=== PATIENT | male | born 1985 | race Caucasian/White ===

== ENCOUNTER 2016-06-29 13:30 | Emergency (ER) | payer OTHER ==
[2016-06-29 14:08] VITALS: BP 141/78; PULSE 88; RESP 12; TEMP 99.1; O2SAT 96
--- NOTE | 2016-06-29 14:43 | UCPHY ---
H & P Time Seen by Provider: 06/29/16 14:42 Patient Type: New HPI/ROS: This is a duplicate chart Smoking Status: Never smoked Constitutional: Initial Vital Signs Temperature (C) 37.3 C 06/29/16 14:04 Heart Rate 88 06/29/16 14:04 Respiratory Rate 12 06/29/16 14:04 Blood Pressure 141/78 H 06/29/16 14:04 O2 Sat (%) 96 06/29/16 14:04 O2 Delivery Mode Room Air Allergies/Adverse Reactions: No Known Allergies Allergy (Verified 06/29/16 14:03) Home Medications: Medication Instructions Recorded La[facility]tal 05/31/15 Seroquel 100 mg (RX) 05/31/15 MDM/Departure - Depart - PQRS PQRS Measurement: MYPQRS
--- NOTE | 2016-06-29 14:44 | UCPHY ---
H & P Time Seen by Provider: 06/29/16 14:42 Patient Type: Established HPI/ROS: Chief complaint. Thumb injury HPI. 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 He was scoring and snapping a piece of glass which then cut him across the dorsum of his right thumb. Injury occurred just prior to arrival. Denies focal weakness paresthesias. No sense of retained foreign body. Current on tetanus immunization ROS Constitutional. no fever/chills, no weakness Eyes. no problems with vision ENT. no sore throat, no nasal drainage Cardiovascular. no chest pain Respiratory. no shortness of breath, no cough Abdominal. no abdominal pain, no nausea/vomiting, no diarrhea . no problems urinating MS. no calf pain/swelling, no neck/back pain, no joint pain Skin. Thumb laceration Lymph. no swollen glands Neuro. no headache, no dizziness, no difficulty walking or with speech Past Medical/Surgical History: Bipolar illness Social History: Single, nonsmoker, no alcohol Smoking Status: Never smoked Physical Exam: General Appearance: Alert well-developed male mild distress vital signs stable Eyes: Pupils equal and round no pallor or injection. ENT, Mouth: Mucous membranes are moist. Respiratory: There are no retractions, lungs are clear to auscultation. Cardiovascular: Regular rate and rhythm. Gastrointestinal: Abdomen is soft and nontender, no masses, bowel sounds normal. Neurological: Awake and alert, sensory and motor exams grossly normal. Skin: 1.5 cm laceration across the dorsum of his right thumb. I can see a small cut in the extensor tendon through the laceration. Patient however has good range of motion and good extension against resistance. Sensation is normal Musculoskeletal: Neck is supple nontender. Extremities symmetrical, full range of motion. Psychiatric: Patient is oriented X 3, there is no agitation. Constitutional: Initial Vital Signs Temperature (C) 37.3 C 06/29/16 14:04 Heart Rate 88 06/29/16 14:04 Respiratory Rate 12 06/29/16 14:04 Blood Pressure 141/78 H 06/29/16 14:04 O2 Sat (%) 96 06/29/16 14:04 O2 Delivery Mode Room Air Allergies/Adverse Reactions: No Known Allergies Allergy (Verified 06/29/16 14:03) Home Medications: Medication Instructions Recorded [facility]tal 05/31/15 Seroquel 100 mg (RX) 05/31/15 MDM/Departure - MDM Procedures: Procedure: Laceration repair. Verbal consent was obtained from the patient. The 1.5 cm laceration on the dorsum right thumb was anesthetized in the usual fashion. The wound was irrigated, draped and explored to its base with a gloved finger. A partial tendon injury was identified. The wound was repaired with [6 5 -0 Prolene sutures ]. The wound repair was simple. The procedure was performed by myself. No repair to tendon Patient is placed in a thumb spica splint. Post splint application shows good anatomic position and distal motor vascular sensitivity to be intact ED Course/Re-evaluation: Patient is placed in thumb spica splint. The patient and I discussed treatment plan including criteria for return importance of follow-up and further evaluation. He is aware he has a partial tendon laceration that needs to be treated cautiously. I encouraged him to follow up with hand surgeon as well. He expresses understanding and agreement Differential Diagnosis: Laceration I considered tendon laceration, retained foreign body, infection potential - Depart Disposition: Home, Routine, Self-Care Clinical Impression: Laceration of thumb Qualifiers: Encounter type: initial encounter Laterality: right Qualified Code(s): S61.011A - Laceration without foreign body of right thumb without damage to nail , initial encounter Extensor tendon laceration of finger with open wound Qualifiers: Encounter type: initial encounter Qualified Code(s): S66.529A - Laceration of intrinsic muscle, fascia and tendon of unspecified finger at wrist and hand level, initial encounter; S61.209A - Unspecified open wound of unspecified finger without damage to nail, initial encounter Condition: Good Instructions: Care For Your Stitches (ED), Tendon Laceration (ED) Additional Instructions: Keep cut clean and dry. You may shower and wash her hands. Because of the laceration to the extensor tendon of your thumb you should wear the splint for 2 weeks. I am also giving you the name of a hand surgeon that I encourage you to call make an appointment for follow-up. Return for signs of infection. Stitches out 10 days Referrals: Brant Machuca MD [Medical Doctor] - 5-7 days, call for appt. - PQRS PQRS Measurement: 134: Depression screening and followup, PRIME MD-PHQ2 (12 years and older) Over the last 2 weeks, how often have you been bothered by any of the following problems? 1. Feeling down, depressed, or hopeless? 2. Little interest or pleasure in doing things? Patient answered no to both 1 and 2 130: Documentation of medications. Reviewed all patient medications, doses, route and frequency. 226: Do you smoke? [No.
== END 2016-06-29 15:52 | disposition home or self-care (01) ==
LOC: CED 13:30
PROC: 0HQFXZZ Repair Right Hand Skin, External Approach (ICD-10-PCS; principal; 2016-06-29)
DX: S61.011A Laceration without foreign body of right thumb without damage to nail, initial encounter (principal); W25.XXXA Contact with sharp glass, initial encounter
CPT/HCPCS: 12001-PO; 29515-PO; 99213-PO; G0463-PO